=== PATIENT | male | born 1995 | race Caucasian/White ===

== ENCOUNTER 2017-05-06 06:34 | Emergency (ER) | payer OTHER ==
--- NOTE | 2017-05-06 06:54 | EDPHY ---
H & P Stated Complaint: pt says etoh last pm, woke up this am with n/v/abd pain Time Seen by Provider: 05/06/17 06:48 - Medical/Surgical History Hx Asthma: No Hx Chronic Respiratory Disease: No Hx Diabetes: No Hx Cardiac Disease: No Hx Renal Disease: No Hx Cirrhosis: No Hx Alcoholism: No Hx HIV/AIDS: No Hx Splenectomy or Spleen Trauma: No Other PMH: none - Social History Smoking Status: Never smoked Constitutional: Initial Vital Signs Heart Rate 96 05/06/17 06:37 Respiratory Rate 20 05/06/17 06:37 Blood Pressure 165/89 H 05/06/17 06:37 O2 Sat (%) 99 05/06/17 06:37 O2 Delivery Mode Room Air Allergies/Adverse Reactions: No Known Allergies Allergy (Unverified 05/06/17 06:40) Home Medications: Medication Instructions Recorded NK [No Known Home Meds] 05/06/17 Medical Decision Making ED Course/Re-evaluation: CHIEF COMPLAINT: Abdominal pain, nausea, vomiting HISTORY OF PRESENT ILLNESS: This patient is a healthy 22 year old male complaining of abdominal pain, nausea , and vomiting secondary to alcohol use yesterday evening. He states he has diffuse abdominal pain. He reports he has vomited between 10-20 times since 3am this morning, four hours ago. He states he is feeling quite anxious as well. He denies fever, chills, chest pain, or other associated symptoms. REVIEW OF SYSTEMS: A 10 point review of systems was performed and is negative with the exception of the elements mentioned in the history of present illness. PHYSICAL EXAM: HR, BP, O2 Sat, RR. Temp noted General Appearance: Alert, well hydrated, appropriate, and non-toxic appearing. Head: Atraumatic without scalp tenderness or obvious injury Eyes: Pupils equal, round, reactive to light and accommodation, EOMI, no trauma , no injection. Ears: Clear bilaterally, no perforation, normal landmarks Nose: Atraumatic, no rhinorrhea, clear. Throat: There is no erythema or exudates, no lesions, normal tonsils, mucus membranes moist. Neck: Supple, nontender, no lymphadenopathy. Respiratory: Tachypneic. No retractions, no distress, no wheezes, and no accessory muscle use. Lungs are clear to auscultation bilaterally. Cardiovascular: Regular rate and rhythm, no murmurs, rubs, or gallops. Good capillary refill all extremities. Gastrointestinal: Abdomen is soft, nontender, non-distended, no masses, no rebound, no guarding, no peritoneal signs. Musculoskeletal: Normal active ROM of all extremities, atraumatic. Neurological: Alert, appropriate, and interactive. Nonfocal neuro exam. Skin: No rashes, good turgor, no nodules on palpation. Past medical history: Denies Past surgical history: Noncontributory Family history: Noncontributory Social history: Lives in [place] DIFFERENTIAL DIAGNOSIS: The differential diagnosis for the patient's abdominal pain included but was not limited to Kati-Awad tear, Boerhaave tear, alcoholic gastritis, appendicitis. MEDICAL DECISION MAKING: This patient is a 22 year old male presenting with abdominal pain and nausea with multiple episodes of vomiting since 3:00 this morning. Patient's abdomen is benign on exam. IV established. Plan for hydration with 1L IV NS, administration of 4mg IV Zofran, 1mg IV Ativan for symptom relief. Plan for labs including BMP, liver, and lipase. Labs reveal elevated anion gap at 23 mEq/L and low potassium levels, suggestive of dehydration and metabolic acidosis. Liver and lipase within normal limits. Abdominal pain and vomiting likely secondary to alcohol abuse. Will continue to hydrate patient with IV fluids and introduce PO fluids as tolerated. Plan to order blood chemistry test to assess patient's hydration. Anion gap resolved, electrolyte balance restored. Reassessed patient. He is feeling better following rehydration and treatment of nausea. Plan to discharge home in good condition. The patient is comfortable with this plan. - Data Points Laboratory Results: Laboratory Results 05/06/17 08:55 05/06/17 05/06/17 08:55 07:07 Sodium 145 mEq/L H mEq/L 146 mEq/L H mEq/L (134-144) (134-144) Potassium 3.8 mEq/L mEq/L 3.4 mEq/L L mEq/L (3.5-5.2) (3.5-5.2) Chloride 113 mEq/L H mEq/L 106 mEq/L mEq/L (97-110) (97-110) Carbon Dioxide 21 mEq/l L mEq/l 17 mEq/l L mEq/l (22-31) (22-31) Anion Gap 11 mEq/L mEq/L 23 mEq/L H mEq/L (8-16) (8-16) BUN 15 mg/dL mg/dL 14 mg/dL mg/dL (7-23) (7-23) Creatinine 0.8 mg/dL mg/dL 1.0 mg/dL mg/dL (0.7-1.3) (0.7-1.3) Estimated GFR > 60 > 60 Glucose 90 mg/dL mg/dL 125 mg/dL H mg/dL (70-100) (70-100) Calcium 8.7 mg/dL D mg/dL 10.9 mg/dL H mg/dL (8.5-10.4) (8.5-10.4) Phosphorus 1.2 mg/dL L mg/dL (2.5-4.5) Total Bilirubin 2.0 mg/dL H mg/dL (0.1-1.4) Conjugated Bilirubin 0.4 mg/dL mg/dL (0.0-0.5) Unconjugated Bilirubin 1.6 mg/dL H mg/dL (0.0-1.1) AST 45 IU/L IU/L (17-59) ALT 53 IU/L IU/L (21-72) Alkaline Phosphatase 69 IU/L IU/L (38-126) Total Protein 9.1 g/dL H g/dL (6.3-8.2) Albumin 5.5 g/dL H g/dL (3.5-5.0) Lipase 43.0 IU/L IU/L (23-300) Medications Given: Discontinued Medications Sodium Chloride (Ns) 1,000 mls @ 0 mls/hr IV ONCE ONE; Wide Open PRN Reason: Protocol Stop: 05/06/17 06:59 Last Admin: 05/06/17 07:10 Dose: 1,000 mls Sodium Chloride (Ns) 1,000 mls @ 0 mls/hr IV ONCE ONE; Wide Open PRN Reason: Protocol Stop: 05/06/17 08:15 Last Admin: 05/06/17 08:16 Dose: 1,000 mls Lorazepam (Ativan Injection) 1 mg IVP EDNOW ONE Stop: 05/06/17 06:58 Last Admin: 05/06/17 07:16 Dose: 1 mg Ondansetron HCl (Zofran) 4 mg IVP EDNOW ONE Stop: 05/06/17 06:58 Last Admin: 05/06/17 07:15 Dose: 4 mg Departure - Departure Disposition: Home, Routine, Self-Care Clinical Impression: Dehydration, Alcohol use Vomiting Qualifiers: Vomiting type: unspecified Vomiting Intractability: non-intractable Nausea presence: with nausea Qualified Code(s): R11.2 - Nausea with vomiting, unspecified Condition: Good Instructions: Acute Nausea and Vomiting (ED), Abuse of Alcohol (ED) Additional Instructions: 1. Be sure to stay well hydrated, drinking plenty of fluids. Avoid excess alcohol use. 2. You may take Zofran as prescribed as needed for nausea. 3. Follow up with a primary care provider for symptoms unresolved in the next day. 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 4. Return to the emergency department for continued vomiting, worsening pain, fainting, or other worsening of condition. Referrals: Soha Eaton MD [Medical Doctor] - As per Instructions Report Scribed for: Speedy Butcher Report Scribed by: Mary Kay Wadsworth Date of Report: 05/06/17 Time of Report: 07:11
[2017-05-06] MEDS ORDERED: ONDANSETRON 4 MG/2 ML VIAL IVP ONE (06:57)
[2017-05-06] MEDS ORDERED: LORazepam 2 MG/ML INJ IVP ONE (06:57)
[2017-05-06] MEDS ORDERED: NS 1,000 ML IV ONE ×2 (06:58→08:14)
[2017-05-06 07:37] LABS: ALANINE AMINOTRANSFERASE 53 IU/L (21-72); ALBUMIN 5.5 g/dL (3.5-5.0); ALKALINE PHOSPHATASE 69 IU/L (38-126); ANION GAP 23 mEq/L (8-16); ASPARTATE AMINOTRANSFERASE 45 IU/L (17-59); BILIRUBIN-CONJUGATED 0.4 mg/dL (0.0-0.5); BILIRUBIN-UNCONJUGATED 1.6 mg/dL (0.0-1.1); CALCIUM 10.9 mg/dL (8.5-10.4); CARBON DIOXIDE 17 mEq/l (22-31); CHLORIDE 106 mEq/L (97-110); GLOMERULAR FILTRATION RATE > 60; GLUCOSE 125 mg/dL (70-100); POTASSIUM 3.4 mEq/L (3.5-5.2); SODIUM 146 mEq/L (134-144); TOTAL PROTEIN 9.1 g/dL (6.3-8.2)
[2017-05-06 09:16] LABS: ANION GAP 11 mEq/L (8-16); CALCIUM 8.7 mg/dL (8.5-10.4); CARBON DIOXIDE 21 mEq/l (22-31); CHLORIDE 113 mEq/L (97-110); CREATININE 0.8 mg/dL (0.7-1.3); GLOMERULAR FILTRATION RATE > 60; GLUCOSE 90 mg/dL (70-100); POTASSIUM 3.8 mEq/L (3.5-5.2); SODIUM 145 mEq/L (134-144)
[2017-05-06] MEDS ORDERED: ONDANSETRON 4MG PREPACK#2 BTL TAKEHOME ONE (10:01)
[2017-05-06 10:08] VITALS: BP 134/68; PULSE 80; RESP 16; TEMP 98.2; O2SAT 97
== END 2017-05-06 10:11 | disposition home or self-care (01) ==
LOC: EDBD 06:34
DX: E86.0 Dehydration (principal); F10.99 Alcohol use, unspecified with unspecified alcohol-induced disorder
CPT/HCPCS: 96374; J2060; J2405